=== PATIENT | female | born 1965 ===

== ENCOUNTER 2018-09-14 07:58 | Day surgery (SDC) | payer OTHER ==
[2018-09-14 09:48] VITALS: BMI 25.8
[2018-09-14] MEDS ORDERED: Lactated Ringer's 500 ML IV ONE (09:51)
[2018-09-14 10:01] VITALS: O2SAT 100
[2018-09-14] MEDS ORDERED: Propofol 10 mg/ml Inj (20 ML) ONE (11:08)
[2018-09-14] MEDS ORDERED: Midazolam 2 MG/2 ML VIAL ONE (11:08)
[2018-09-14 11:41] VITALS: RESP 12; TEMP 97
[2018-09-14 12:00] VITALS: BP 109/68; PULSE 79
== END 2018-09-14 12:29 | disposition home or self-care (01) ==
LOC: H.ENDO 07:58
PROVIDERS: ATTEND Internal Medicine Gastroenterology
DX: Z12.11 Encounter for screening for malignant neoplasm of colon (principal); I10 Essential (primary) hypertension; K64.8 Other hemorrhoids; K31.89 Other diseases of stomach and duodenum; K29.50 Unspecified chronic gastritis without bleeding
CPT/HCPCS: 43239; 45378; 88305; J2001; J2250; J2704; J7120